=== PATIENT | female | born 2005 | race Caucasian/White ===

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

== ENCOUNTER 2023-03-26 17:35 | Emergency (ER) | payer BC, OTHER ==
[~2023-03-26] VITALS: Ht 167.6 cm; Wt 65.0 kg
[2023-03-26 17:50] VITALS: BP 113/77
[2023-03-26] MEDS ORDERED: ibuprofen tablet 400 MG TABLET PO ONE (18:40)
[2023-03-26] MEDS ORDERED: IBUP-1986 PO (18:49)
== END 2023-03-26 19:01 | disposition home or self-care (01) ==
LOC: ER 17:36
DX: M25.562 Pain in left knee (principal)
CPT/HCPCS: 29505; 73564; 99284

== ENCOUNTER 2024-04-17 00:28 | Inpatient (IN) | payer BC, OTHER ==
[~2024-04-17] VITALS: Ht 167.6 cm; Wt 63.6 kg
[~2024-04-17 00:28] MED LIST changes: +IBUP-1986 PO; +ONDA-243 PO; -ONDA4TAB12 PO
[2024-04-17] MEDS: LORazepam 1 MG tablet PO ONE (00:40)
[2024-04-17] MEDS: metoclopramide 5 mg/ml inj IM ONE (00:45)
[2024-04-17] MEDS: diphenhydrAMINE 50 mg/ml inj IM ONE (00:45)
[2024-04-17 01:10] LABS: BASOPHILS % (AUTO) 0.1 % (0-1); EOSINOPHILS # (AUTO) 0.1 X10'3 (0-0.9); EOSINOPHILS % (AUTO) 0.3 % (0-6); HEMATOCRIT 49.5 % (35.0-45.0); HEMOGLOBIN 16.8 g/dl (12.0-16.0); LYMPHOCYTES # (AUTO) 1.4 X10'3 (1.1-4.8); LYMPHOCYTES % (AUTO) 6.7 % (21-51); MEAN CORPUSCULAR HEMOGLOBIN 30.2 PG (27.0-31.0); MEAN CORPUSCULAR VOLUME 88.9 FL (78-98); MEAN PLATELET VOLUME 6.5 FL (7.4-10.4); MONOCYTES # (AUTO) 0.8 X10'3 (0-0.9); MONOCYTES % (AUTO) 3.7 % (2-12); NEUTROPHILS # (AUTO) 18.9 X10'3 (1.8-7.7); NEUTROPHILS % (AUTO) 89.2 % (42-75); PLATELET COUNT 320 X10'3 (140-440); RED BLOOD COUNT 5.57 X10'6 (4.20-5.60); RED CELL DISTRIBUTION WIDTH 13.5 % (11.5-14.5); WHITE BLOOD COUNT 21.3 X10'3 (4.5-11.0)
[2024-04-17 01:49] LABS: APTT 24 SECONDS (22-32); PROTHROMBIN TIME 10.8 SECONDS (9.0-12.0)
[2024-04-17 01:50] LABS: ALANINE AMINOTRANSFERASE 23 U/L (12-78); ALBUMIN 4.5 G/DL (3.4-5.0); ALBUMIN/GLOBULIN RATIO 1.3 (1.1-1.5); ALKALINE PHOSPHATASE 77 IU/L (20-180); ANION GAP 16 (8-16); ASPARTATE AMINO TRANSFERASE 17 U/L (10-37); BILIRUBIN,TOTAL 0.5 MG/DL (0.1-1.0); BLOOD UREA NITROGEN 14 MG/DL (7-18); BUN/CREATININE RATIO 13.7 (10.0-20.0); CALCIUM 9.6 MG/DL (8.5-10.1); CHLORIDE 103 MMOL/L (99-107); CREATININE 1.02 MG/DL (0.40-0.90); GLUCOSE 125 MG/DL (70-104); POTASSIUM 3.5 MMOL/L (3.5-5.1); SODIUM 141 MMOL/L (135-145); TOTAL PROTEIN 8.1 G/DL (6.4-8.2); eCRCL 82 ML/MIN; eGFR 69 ML/MIN
[2024-04-17 01:59] LABS: FREE T4 (FREE THYROXINE) 1.05 NG/DL (0.73-1.40); PRO BRAIN NATRIURETIC PEPTIDE 45 PG/ML (0-125); THYROID STIMULATING HORMONE 1.25 ulU/ml (0.34-4.50)
[2024-04-17 02:37] LABS: HCG SERUM QL NEGATIVE
[2024-04-17] MEDS: normal saline 1000ml 1,000 ML IV ONE (05:03)
[2024-04-17] MEDS: ondansetron/PF 4mg/2ml inj IV ONE (05:03)
[2024-04-17] MEDS: ringers solution, lacted 1,000 ML IV SCH (05:15)
[2024-04-17] MEDS ORDERED: magnesium sulf-water 2g/50mL 50 ML IV PRN (06:15)
[2024-04-17] MEDS ORDERED: potassium Cl 40MEQ/1/2NS 520ml 520 ML IV PRN (06:15)
[2024-04-17] MEDS ORDERED: morphine 2 MG/ML inj. syringe IV PRN ×2 (06:15)
[2024-04-17] MEDS ORDERED: magnesium Cl slow-release 64mg tablet PO PRN (06:15)
[2024-04-17] MEDS ORDERED: acetaminophen 325mg tablet PO PRN (06:15)
[2024-04-17] MEDS ORDERED: potassium Cl 20 mEq SR tablet PO PRN ×2 (06:15)
[2024-04-17] MEDS ORDERED: magnesium sulf-water 4G/100mL 100 ML IV PRN (06:15)
[2024-04-17] MEDS: ringers solution, lacted 1,000 ML IV ONE (07:02)
[2024-04-17] MEDS: pantoprazole 40 MG vial IV SCH (07:53)
[2024-04-17] MEDS: metroNIDAZOLE-Flagyl 500mg/NS 100 ML IV SCH (07:55)
[2024-04-17] MEDS: CefTRIAXone/D5W-Rocephin 1gm 50 ML IV SCH (07:55)
[2024-04-17] MEDS: K and/or MAG REPLACEMENT MC SCH (08:00)
[2024-04-17] MEDS: normal saline 1000ml 1,000 ML IV SCH (08:29)
[2024-04-17] MEDS: ondansetron/PF 4mg/2ml inj IV PRN (13:02)
[2024-04-17 18:07] LABS: BILIRUBIN,URINE NEGATIVE (Neg); CLARITY,URINE CLEAR (Clear); COLOR,URINE YELLOW (Yellow); GLUCOSE, URINE NEGATIVE (Neg); KETONES,URINE NEGATIVE (Neg); LEUKOCYTE ESTERASE ,URINE NEGATIVE (Neg); NITRITES, URINE NEGATIVE (Neg); OCCULT BLOOD,URINE MODERATE (Neg); PROTEIN,URINE NEGATIVE (Neg); UROBILINOGEN,URINE 0.2 E.U/dL (0.2-1.0)
[2024-04-17 18:08] LABS: UA COLLECTION TYPE CLN CATCH MIDSTREAM
[2024-04-17] MEDS: ibuprofen tablet 400 MG TABLET PO PRN (18:09)
[2024-04-17 18:20] LABS: BACTERIA,URINE FEW /HPF (Neg); MUCUS STRANDS FEW /LPF (Neg); SQUAMOUS EPITHELIAL CELL,UR MODERATE /LPF (FEW); WBC,URINE 0-4 /HPF (0-4)
[2024-04-17 19:13] LABS: URINE AMPHETAMINE SCREEN NEGATIVE (Neg); URINE BARBITUATE SCREEN NEGATIVE (Neg); URINE BENZODIAZEPINES SCREEN NEGATIVE (Neg); URINE CANNABINOID SCREEN NEGATIVE (Neg); URINE COCAINE SCREEN NEGATIVE (Neg); URINE METHADONE SCREEN NEGATIVE (Neg); URINE OPIATE SCREEN NEGATIVE (Neg); URINE PHENCYCLIDINE SCREEN NEGATIVE (Neg)
[2024-04-17 22:00] VITALS: BP 105/62; PULSE 60; RESP 14; TEMP 98.1; O2SAT 97
[2024-04-17] MEDS: enoxaparin 40mg/0.4ml syringe SQ SCH (22:04)
[2024-04-17 23:15] VITALS: BP_SYST 103; BP_SYST 106; BP_DIAS 65; PULSE 63; PULSE 70
[2024-04-17 23:23] VITALS: RESP 14; O2SAT 100
[2024-04-18 05:43] LABS: BASOPHILS % (AUTO) 0.2 % (0-1); EOSINOPHILS # (AUTO) 0.1 X10'3 (0-0.9); HEMATOCRIT 40.2 % (35.0-45.0); HEMOGLOBIN 13.7 g/dl (12.0-16.0); LYMPHOCYTES # (AUTO) 1.9 X10'3 (1.1-4.8); MEAN CORPUSCULAR HEMOGLOBIN 30.7 PG (27.0-31.0); MEAN CORPUSCULAR HGB CONC 33.9 g/dL (33.0-36.5); MEAN CORPUSCULAR VOLUME 90.3 FL (78-98); MEAN PLATELET VOLUME 7.2 FL (7.4-10.4); MONOCYTES # (AUTO) 0.6 X10'3 (0-0.9); MONOCYTES % (AUTO) 11.7 % (2-12); NEUTROPHILS # (AUTO) 2.6 X10'3 (1.8-7.7); NEUTROPHILS % (AUTO) 51.1 % (42-75); PLATELET COUNT 187 X10'3 (140-440); RED BLOOD COUNT 4.46 X10'6 (4.20-5.60); RED CELL DISTRIBUTION WIDTH 13.4 % (11.5-14.5); WHITE BLOOD COUNT 5.2 X10'3 (4.5-11.0)
[2024-04-18 06:06] LABS: APTT 32 SECONDS (22-32); INR 1.1 INR; PROTHROMBIN TIME 11.8 SECONDS (9.0-12.0)
[2024-04-18 06:07] LABS: ALANINE AMINOTRANSFERASE 17 U/L (12-78); ALBUMIN 2.8 G/DL (3.4-5.0); ALKALINE PHOSPHATASE 44 IU/L (20-180); ANION GAP 10 (8-16); ASPARTATE AMINO TRANSFERASE 16 U/L (10-37); BILIRUBIN,TOTAL 0.5 MG/DL (0.1-1.0); BLOOD UREA NITROGEN 11 MG/DL (7-18); BUN/CREATININE RATIO 14.3 (10.0-20.0); CALCIUM 8.2 MG/DL (8.5-10.1); CHLORIDE 107 MMOL/L (99-107); CREATININE 0.77 MG/DL (0.40-0.90); GLUCOSE 93 MG/DL (70-104); MAGNESIUM 1.9 MG/DL (1.5-2.4); PHOSPHORUS 3.3 MG/DL (2.3-4.5); POTASSIUM 3.6 MMOL/L (3.5-5.1); SODIUM 140 MMOL/L (135-145); TOTAL CARBON DIOXIDE 23.2 MMOL/L (24-32); TOTAL PROTEIN 5.5 G/DL (6.4-8.2); eCRCL 109 ML/MIN; eGFR > 90 ML/MIN
[2024-04-18 07:00] VITALS: BP 91/44; PULSE 54; RESP 16; TEMP 97.8; O2SAT 98
[2024-04-18] MEDS ORDERED: ONDA-243 PO (11:01)
== END 2024-04-18 12:39 | disposition home or self-care (01) | DRG 392 ==
LOC: ER 00:29 → ED HOLD 06:17 → EDBEDREQ 19:43 → PCU 3S 21:16
PROVIDERS: ADMIT Surgery Surgical Critical Care; ATTEND Internal Medicine
DX: K52.9 Noninfective gastroenteritis and colitis, unspecified (principal); E86.0 Dehydration; F41.0 Panic disorder [episodic paroxysmal anxiety]; M54.50 Low back pain, unspecified; R00.0 Tachycardia, unspecified
CPT/HCPCS: 36415; 71045; 80053; 80305; 81001; 83605; 83735; 83880; 84100; 84132; 84439; 84443; 84484; 84703; 85025; 85610; 85730; 87040; 87081; 93005; 96361; 96374; 99285; G0378; J0696; J1650; J2405; J2470; J3490; J7030; J7040; J7120

== ENCOUNTER 2024-04-19 15:20 | Outpatient (CLI) | payer OTHER ==
[~2024-04-19 15:20] MED LIST changes: -NITR100C6 PO
== END 2024-04-19 23:59 | disposition home or self-care (01) ==
LOC: MRI 15:20
PROVIDERS: ATTEND Orthopaedic Surgery
DX: S83.232A Complex tear of medial meniscus, current injury, left knee, initial encounter (principal); M25.862 Other specified joint disorders, left knee; M25.462 Effusion, left knee; M24.662 Ankylosis, left knee; X58.XXXA Exposure to other specified factors, initial encounter; Y93.89 Activity, other specified; Y92.89 Other specified places as the place of occurrence of the external cause; Y99.8 Other external cause status
CPT/HCPCS: 73721